=== PATIENT | male | born 1935 | race Caucasian/White ===

== ENCOUNTER 2018-05-03 09:13 | Outpatient (CLI) | payer MEDICARE ==
--- NOTE | 2018-05-03 09:43 | RAD ---
THORACIC SPINE 3 VIEWS: Date: 05/03/18 HISTORY: Back pain. FINDINGS: The bones are demineralized. The vertebral bodies are felt to be fairly normal in height. Prominent o steophytic change is seen. Pedicles appear intact. 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 No definite acute process. POS: [facility]
== END 2018-05-03 09:14 | disposition home or self-care (01) ==
LOC: RAD 09:13
PROVIDERS: ATTEND Nurse Practitioner Family
DX: M47.24 Other spondylosis with radiculopathy, thoracic region (principal)
CPT/HCPCS: 72072

== ENCOUNTER 2022-11-08 09:00 | Day surgery (SDC) | payer MEDICARE ==
[2022-11-07 11:17] VITALS: BMI 22.9
[2022-11-08] MEDS ORDERED: FENTANYL 50 MCG/ML 1 ML VIAL ONE (11:20)
[2022-11-08] MEDS ORDERED: PROPOFOL 200 MG/20 ML VIAL ONE (11:36)
[2022-11-08] MEDS ORDERED: Ondansetron PF 4 MG/2 ML Vial ONE (12:02)
== END 2022-11-08 13:36 | disposition home or self-care (01) ==
LOC: SDC 09:00
PROVIDERS: ATTEND Internal Medicine Gastroenterology
PROC: 0D718ZZ Dilation of Upper Esophagus, Via Natural or Artificial Opening Endoscopic (ICD-10-PCS; principal; 2022-11-08)
PROC: 0D728ZZ Dilation of Middle Esophagus, Via Natural or Artificial Opening Endoscopic (ICD-10-PCS; 2022-11-08)
PROC: 0D738ZZ Dilation of Lower Esophagus, Via Natural or Artificial Opening Endoscopic (ICD-10-PCS; 2022-11-08)
DX: K22.2 Esophageal obstruction (principal); B37.81 Candidal esophagitis; E11.9 Type 2 diabetes mellitus without complications; I10 Essential (primary) hypertension; Z86.010 Personal history of colon polyps; Z87.891 Personal history of nicotine dependence; Z79.82 Long term (current) use of aspirin; Z79.84 Long term (current) use of oral hypoglycemic drugs; Z79.899 Other long term (current) drug therapy
CPT/HCPCS: 43248; J3010; J2405